=== PATIENT | male | born 1980 | race African-American/Black ===

== ENCOUNTER 2017-07-20 07:00 | Outpatient (RCR) | payer OTHER | END 2017-08-16 08:58 | disposition home or self-care (01) | LOC: WSPT 07:00 | DX: M25.552 Pain in left hip (principal) ==

== ENCOUNTER → 2020-03-28 | Emergency (ER) | payer OTHER ==
[~2020-03-28] VITALS: Ht 188 cm; Wt 87.3 kg
[2020-03-28 07:56] VITALS: TEMP 98.1
[2020-03-28 08:14] LABS: BASO # 0.1 (0.0-0.2); BASO % 0.9 % (0.0-2.0); EOS # 0.1 (0.0-0.7); EOS % 1.1 % (0-4.0); GRAN % 55.9 % (42.2-75.2); HEMATOCRIT 45.9 % (42.0-52.0); LYMPH # 1.7 (1.2-3.4); LYMPH % 31.2 % (20.0-51.0); MEAN CELL VOLUME 84 fl (80.0-100.0); MEAN CORPUSCULAR HEMOGLOBIN 28 pg (27.0-31.0); MEAN CORPUSCULAR HGB CONC 33 g/dl (33.0-37.0); MEAN PLATELET VOLUME 9.7 fl (7.4-10.4); MONO # 0.6 (0.1-0.6); MONO % 10.7 % (1.7-9.3); PLATELET COUNT 189 K/mm3 (130-400); RED BLOOD COUNT 5.46 M/mm3 (4.20-5.60); REDCELL DISTRIBUTION WIDTH-CV 13.8 % (11.5-14.5)
[2020-03-28 08:24] LABS: ALANINE AMINOTRANSFERASE 22 U/L (4-49); ALBUMIN 4.7 gm/dL (3.5-5.0); ALKALINE PHOSPHATASE 38 U/L (50-136); ANION GAP 7 mmol/L (7-16); AST,SGOT 29 U/L (15-37); BILIRUBIN,TOTAL 0.9 mg/dL (0.0-1.0); BLOOD UREA NITROGEN 18 mg/dL (9-20); CALCIUM 9.1 mg/dL (8.4-10.2); CARBON DIOXIDE 27 mmol/L (22-30); CHLORIDE 105 mmol/L (98-107); CREATININE, serum 1.22 (0.66-1.25); GLUCOSE 85 mg/dL (74-106); LIPASE 45 U/L (23-300); POTASSIUM 4.2 mmol/L (3.4-5.0); SODIUM 139 mmol/L (137-145); TOTAL PROTEIN 7.7 gm/dL (6.4-8.2)
[2020-03-28 08:37] LABS: TROPONIN-I < 0.012 ng/mL (0.000-0.035)
[2020-03-28 12:09] VITALS: BP 118/75; PULSE 45
== END ==
LOC: COL.ER 07:49
PROVIDERS: Emergency Medicine
DX: R07.89 Other chest pain (principal)
CPT/HCPCS: J1885; J7030